=== PATIENT | male | born 1990 | race Caucasian/White ===

== ENCOUNTER 2017-12-29 05:35 | Emergency (ER) | payer SELFPAY ==
[2017-12-29] MEDS: ACETAMINOPHEN 500 MG TAB PO (06:24)
== END 2017-12-29 07:47 | disposition home or self-care (01) ==
LOC: FTE 05:35
DX: S00.81XA Abrasion of other part of head, initial encounter (principal); S00.531A Contusion of lip, initial encounter; Y08.89XA Assault by other specified means, initial encounter
CPT/HCPCS: 70140; 73030-RT; 99284-25